=== PATIENT | male | born 1960 | race Caucasian/White ===

== ENCOUNTER 2016-09-20 06:25 | Day surgery (SDC) | payer BC ==
[2016-09-14 10:29] VITALS: BMI 32.5
[~2016-09-20 06:25] MED LIST: CLINDAMYCIN 900 MG in DEXTROSE 5% IN WATER 50 ML IVPB ONE; HEPARIN SODIUM,PORCINE 5,000 UNIT/ML 1 ML VIAL SQ ONE
[2016-09-20] MEDS ORDERED: LACTATED RINGERS 1,000 ML IV SCH (06:52)
[2016-09-20] MEDS ORDERED: ONDANSETRON 4 MG/2 ML VIAL IVP ONE (06:52)
[2016-09-20] MEDS ORDERED: LIDOCAINE 1% 20 ML VIAL (10MG/ML) FOR IV START INTRADERMA PRN (06:52)
[2016-09-20] MEDS ORDERED: MIDAZOLAM 2 MG/2 ML VIAL IV PRN (06:52)
[2016-09-20] MEDS ORDERED: HYDROmorphone 1 MG/ML 1 ML SYRINGE IVP PRN (06:52)
[2016-09-20] MEDS ORDERED: SCOPOLAMINE 1.5MG/72HR PATCH TRANSDERM ONE (06:52)
[2016-09-20] MEDS ORDERED: DEXAMETHASONE SOD PHOSPHATE 10 MG/ML 1 ML VIAL IV ONE (06:52)
[2016-09-20] MEDS ORDERED: LIDOCAINE 1% 20 ML VIAL (10MG/ML) FOR IV START INTRADERMA ONE (07:35)
[2016-09-20] MEDS ORDERED: MIDAZOLAM 2 MG/2 ML VIAL IVP ONE (08:02)
[2016-09-20] MEDS ORDERED: PROPOFOL 10 MG/ML 20 ML VIAL IV ONE (08:08)
[2016-09-20] MEDS ORDERED: GLYCOPYRROLATE 0.2 MG/ML 2 ML VIAL ONE (08:08)
[2016-09-20] MEDS ORDERED: fentaNYL (PF) 50 MCG/ML 2 ML AMP ONE (08:08)
[2016-09-20] MEDS ORDERED: LIDOCAINE 1% INJ 10MG/ML (20 ML MDV) ONE (08:08)
[2016-09-20] MEDS ORDERED: PHENYLEPHRINE-0.9% NACL SYG 1 MG/10 ML SYRINGE ONE (08:08)
[2016-09-20] MEDS ORDERED: HYDROmorphone (PF) 1 MG/ML ONE (08:08)
[2016-09-20] MEDS ORDERED: ePHEDrine 50 MG/ML 1 ML AMP ONE (08:08)
[2016-09-20] MEDS ORDERED: SUCCINYLCHOLINE CHLORIDE VIAL 200 MG/10 ML VIAL IV ONE (08:08)
[2016-09-20] MEDS ORDERED: LACTATED RINGERS 1,000 ML IV ONE ×3 (08:47→10:30)
[2016-09-20] MEDS ORDERED: ONDANSETRON 4 MG/2 ML VIAL IVP PRN (11:05)
--- NOTE | 2016-09-20 11:06 | P.OP ---
Date of Procedure: 09/20/16 Preoperative Diagnosis: Multinodular goiter. Indeterminate FNA results Hypothyroidism Obesity BMI Hypertension Postoperative Diagnosis: Multinodular goiter. Indeterminate FNA results Hypothyroidism Obesity BMI Hypertension Procedure(s) Performed: Total thyroidectomy Implants: NA Anesthesia: GETA Surgeon: Nicole Mock Director Software Development #1: Anel Anand Estimated Blood Loss (ml): 50 IV fluids (ml): 1,800 Urine output (ml): 505 Pathology: other Condition: other (ASA2) Indications for Procedure: 56 years old male with multinodular goiter and two FNA showing indeterminate results. Informed consent obtained from the patient after explaining the risks , benefits and potential complications including bleeding, infection, recurrent laryngeal nerve injury, parathyroid injury, hypocalcemia and patient elected to undergo the procedure. Operative Findings: Multinodular goiter, largest nodule onleft side . No enlarged lymph nodes in the neck. 4 parathyroid glands were identified and left intact. Both recurrent laryngeal nerves were identified Description of Procedure: The patient was brought to the operating room and placed in supine position. Gen. anesthesia with endotracheal intubation was performed as per anesthesia team. A NIMS tube was used for intubation. Patient was placed in beachchair position and chlorhexidine was used to prep the skin followed by application of sterile drapes. A timeout was performed to verify correct patient, correct procedure and correct side. A 6 cm horizontal skin incision was made along the natural skin crease 2 fingerbreadths above the sternal notch. This was deepened through the subcutaneous tissue and platysma muscle. Superior and inferior flaps were raised up to the thyroid cartilage and sternal notch. The midline was identified and the strap muscles were retracted laterally. Decision was made to proceed with left lobe resection first. Surrounding fibrofatty tissue was taken down using blunt dissection. The inferior pole of the thyroid gland was delivered into the surface. Inferior pole vessels were doubly ligated. The superior thyroid pole was also delivered. The superior thyroid vessels were doubly ligated and divided. Thyroid gland was rotated medially. Fibrofatty tissue was divided. The recurrent laryngeal nerve was clearly identified. Both superior and inferior parathyroid glands were identified. The thyroid gland was then taken off the trachea using Harmonic scalpel device. Similarly attention was focused on the right thyroid gland. The inferior lobe of the thyroid was also delivered and inferior pole vessels were tied and divided. The superior lobe of the thyroid was also delivered to the field and vessels were tied close to the gland. The thyroid gland was rotated medially. The recurrent laryngeal nerve was identified. The superior thyroid gland was also identified. The gland was then taken off the trachea. Small lymph nodes identified in the neck which were removed for pathologic exam. Small pyramidal lobe was identified and was also taken. Again hemostasis was checked. The recurrent laryngeal nerve was identified on both sides. The parathyroid glands were clearly identified and protected. The Erica drain was left in the cavity. This was closed in 3 layers using running sutures of 3-0 Vicryl and running subcutaneous sutures of 4-0 Monocryl. The sponge, instrument and needle count were correct 2. Patient tolerated the procedure well and was taken to postanesthesia care unit in stable condition. Dermabond skin glue was applied. Clean dressings were applied Final Pathologic Diagnosis THYROID, TOTAL THYROIDECTOMY: MULTIFOCAL PAPILLARY THYROID CARCINOMA. BACKGROUND LYMPHOCYTIC THYROIDITIS AND NODULAR HYPERPLASIA WITH A DOMINANT ADENOMATOUS NODULE. TWO BENIGN EXTRATHYROIDAL LYMPH NODES. SEE SURGICAL PATHOLOGY CANCER CASE SUMMARY. Notes SURGICAL PATHOLOGY CANCER CASE SUMMARY - Thyroid gland, resection. Procedure: Total thyroidectomy. Lymph Node Sampling: Two incidental extrathyroidal lymph nodes. Tumor Focality: Multifocal. Tumor Laterality: Left lobe. Tumor Size: Greatest dimension: 5 mm Histologic Type: Papillary carcinoma, follicular variant, infiltrative. Margins: Margins uninvolved by carcinoma. Distance of invasive carcinoma to closest margin: 1 mm. Angioinvasion (Vascular Invasion): Not identified. Lymphatic Invasion: Not identified. Extrathyroidal Extension: Not identified. Pathologic Staging (pTNM, modifier m (multiple primary tumors)): TNM Descriptors (required only if applicable): Primary Tumor: Tumor 1 cm or less in greatest dimension, limited to the thyroid (mpT1a). Regional Lymph Nodes: No regional lymph node metastasis (pN0). Specify: Number examined: 2. Number Involved: 0. Distant Metastasis: Not applicable. Additional Pathologic Findings: Lymphocytic thyroiditis and nodular hyperplasia with a dominant left sided adenomatous nodule.
[2016-09-20] MEDS: ACETAMINOPHEN IV (For NPO) 1,000 MG in EMPTY BAG 1 BAG IVPB SCH ×4 (11:40→23:19)
[2016-09-20] MEDS: SODIUM CHLORIDE 0.9% 1,000 ML IV SCH (13:07)
[2016-09-20] MEDS: traMADol 50 MG TAB PO SCH ×2 (16:43→21:08)
[2016-09-20] MEDS ORDERED: VERAPAMIL SR 240 MG TABLET.ER PO SCH (21:00)
[2016-09-21] MEDS: SODIUM CHLORIDE 0.9% 1,000 ML IV SCH (04:46)
[2016-09-21 04:52] VITALS: RESP 16
[2016-09-21] MEDS: ACETAMINOPHEN IV (For NPO) 1,000 MG in EMPTY BAG 1 BAG IVPB SCH (05:34)
[2016-09-21] MEDS ORDERED: METOPROLOL TARTRATE 25 MG TAB PO SCH (09:00)
[2016-09-21] MEDS ORDERED: LOSARTAN 50 MG TAB PO SCH (09:00)
[2016-09-21] MEDS: traMADol 50 MG TAB PO SCH (09:20)
--- NOTE | 2016-09-21 11:13 | P.PN ---
Subjective 56-year-old gentleman being seen on rounds this morning. Patient is postop total thyroidectomy done on September [address] Mock. Patient is currently taking a clear liquid diet tolerating. Patient is denying any difficulty in swallowing. The calcium level last night was 9.3. Calcium on admission was 10 Objective - Vital Signs Vital signs: Vital Signs Temp 98.7 F 09/21/16 07:00 Pulse 70 09/21/16 08:00 Resp 16 09/21/16 08:00 BP 142/81 09/21/16 07:00 Pulse Ox 94 L 09/21/16 07:00 Intake & Output 09/20/16 09/21/16 09/21/16 18:59 06:59 18:59 Intake Total 3056 1050 Output Total 745 595 Balance 2311 1050 -595 Weight 108.862 kg 108.862 kg Intake: IV 2456 Intake, IV Titration 1050 Amount Sodium Chloride 0.9% 1, 1050 000 ml @ 75 mls/hr IV . [id number] [facility] Rx#:[id number] Oral 600 Output: Urine 595 595 Estimated Blood Loss 150 Other: Voiding Method Urinal Urinal - Exam Physical exam 56-year-old male sitting up in bed taking a clear liquid diet pleasant cooperative oriented 3 states no difficulty in swallowing lungs essentially clear adequate air movement on room air sats are 94% Heart S1-S2 audible regular denying chest pain Abdomen soft nontender Tolerating diet no difficulty in swallowing no nausea vomiting Extremities no edema noted Neck dressing dry to surgical site no swelling noted along the bilateral neck Assessment and Plan Plan: Impression Status post total thyroidectomy done September 20 History of hypertension Vitamin D 3 deficiency Plan Continue postop surgical care by surgical service Possible discharge in the next 24 hours after seen by surgical service Resume home meds as appropriate IV fluid at 75 an hour Pain control The above dictated assessment and findings were discussed with Dr. mock Impression and the plan of care have been dictated as directed. Vivi Garcia nurse practitioner acting as a scribe for dr mock
[2016-09-21 14:27] VITALS: BP 138/78; PULSE 68; TEMP 97.5
[2016-09-21] MEDS ORDERED: HYDROcodone/APAP 5-325MG 1 EACH TAB PO PRN ×2 (15:44→15:46)
[2016-09-21] MEDS ORDERED: DOCUSATE 100 MG CAP PO SCH (21:00)
== END 2016-09-21 16:19 | disposition home or self-care (01) ==
LOC: OR 06:25 → 3SUR 11:01 → OR 09-21 16:19
PROVIDERS: ATTEND Surgery
DX: C73 Malignant neoplasm of thyroid gland (principal); E03.8 Other specified hypothyroidism; E06.3 Autoimmune thyroiditis; I10 Essential (primary) hypertension; E56.8 Deficiency of other vitamins; Z79.82 Long term (current) use of aspirin; Z79.899 Other long term (current) drug therapy; Z88.0 Allergy status to penicillin; E66.9 Obesity, unspecified; Z68.32 Body mass index [BMI] 32.0-32.9, adult
CPT/HCPCS: 82310; 88307